=== PATIENT | female | born 1985 | race American Indian/Alaskan Native ===

== ENCOUNTER 2018-07-18 18:07 | Emergency (ER) | payer MEDICAID ==
[2018-07-18 18:25] VITALS: RESP 16
--- NOTE | 2018-07-18 20:16 | C.PDOC ---
History Of Present Illness 32 y/o female,w/PMhx of sickle cell disease, present to the ER complaining of left leg pain. Patient states that she is being treated by her PMD in [place]. However, she notes that she ran out of her medications because she is visiting family in [place]. Patient denies having chest pain, SOB, abdominal pain, fever, trauma, weakness and numbness. Time Seen by Provider: 07/18/18 18:38 Chief Complaint (Nursing): Lower Extremity Problem/Injury History Per: Patient History/Exam Limitations: no limitations Onset/Duration Of Symptoms: Days Current Symptoms Are (Timing): Still Present Severity: Moderate Past Medical History Reviewed: Historical Data, Nursing Documentation, Vital Signs Vital Signs: Last Vital Signs Temp 98.1 F 07/18/18 18:22 Pulse 92 H 07/18/18 18:22 Resp 16 07/18/18 18:22 BP 110/73 07/18/18 18:22 Pulse Ox 98 07/18/18 18:22 - Medical History PMH: Sickle Cell Disease Other Surgeries: Hx of surgeries Family History: States: No Known Family Hx - Social History Hx Alcohol Use: No Hx Substance Use: No - Immunization History Hx Tetanus Toxoid Vaccination: No Hx Influenza Vaccination: No Hx Pneumococcal Vaccination: No Review Of Systems Except As Marked, All Systems Reviewed And Found Negative. Musculoskeletal: Positive for: Leg Pain (left leg pain) Neurological: Negative for: Weakness, Numbness Physical Exam - Physical Exam Appears: Non-toxic, No Acute Distress Skin: Normal Color, Warm, Dry, No Rash Head: Atraumatic, Normacephalic Eye(s): bilateral: Normal Inspection Ear(s): Bilateral: Normal Nose: Normal Oral Mucosa: Moist Throat: No Erythema, No Exudate Neck: Normal ROM, Supple Chest: Symmetrical, No Tenderness Cardiovascular: No Friction Rub, No Murmur Respiratory: Normal Breath Sounds, No Rales, No Rhonchi, No Wheezing Gastrointestinal/Abdominal: Bowel Sounds (active), Soft, No Tenderness Back: Normal Inspection, No CVA Tenderness Extremity: Normal ROM, No Tenderness, No Swelling Pulses: Left Dorsalis Pedis: Normal, Right Dorsalis Pedis: Normal Neurological/Psych: Oriented x3, Normal Speech, Normal Motor Gait: Steady ED Course And Treatment O2 Sat by Pulse Oximetry: 98 (RA) Pulse Ox Interpretation: Normal Medical Decision Making Medical Decision Making: Plan: --Benadryl PO --Dilaudid PO On re-exam, the patient reports improvement of symptoms. Lungs are CTA, heart is RRR, abdomen is soft, non-tender and tolerating PO well. The patient is ambulatory in the ED with steady gait. Follow up with the medical doctor within 1-2 days. Return if worsened. Disposition - Disposition Referrals: [facility] [Outside] [facility] [Outside] Disposition: HOME/ ROUTINE Disposition Time: 22:21 Condition: IMPROVED Additional Instructions: Follow up with the medical doctor within 1-2 days without fail. Return if worsened. Prescriptions: Morphine [Morphine Extended Release Tab] 15 mg PO TID #15 tabsr Instructions: Sickle Cell Disease (DC) Forms: [employer] (Lithuanian) - Clinical Impression Clinical Impression: Sickle-cell disease with pain - PA / NON PROFIT JOB TITLES / Resident Statement MD/DO has reviewed & agrees with the documentation as recorded. - Scribe Statement The provider has reviewed the documentation as recorded by the Melissa Vickers Provider Attestation All medical record entries made by the Melissa were at my direction and personally dictated by me. I have reviewed the chart and agree that the record accurately reflects my personal performance of the history, physical exam, medical decision making, and the department course for this patient. I have also personally directed, reviewed, and agree with the discharge instructions and disposition.
[2018-07-18 22:12] VITALS: BP 129/86; PULSE 80; TEMP 97.6
[2018-07-18 22:24] VITALS: O2SAT 98
== END 2018-07-18 22:28 | disposition home or self-care (01) ==
LOC: C.ER 18:07
DX: D57.1 Sickle-cell disease without crisis (principal)